=== PATIENT | male | born 1980 | race Caucasian/White ===

== ENCOUNTER → 2017-09-19 | Emergency (ER) | payer OTHER ==
[~2017-09-19] VITALS: Ht 182.9 cm; Wt 106.1 kg
[~2017-09-19] MED LIST: IV NS 0.9% 1,000 ML BAG IV ONE
--- NOTE | 2017-09-19 12:00 | NUR ---
WITNESSED SYNCOPE BY X 20 MINS INSPECTOR ADVANCED COMPOSITE. NO FALL, PT ASSISTED TO THE GROUND. PT STS HE HAD FEVER W/ BODY ACHES X3 DAYS. DR. KERN @ BS FOR EVAL. DENIES CP, SOB, DIZZINESS, N/V @ THIS TIME. PT PLACED ON MONITOR, NO ECTOPY NOTED. @ BS & WILL CONT TO MONITOR.
[2017-09-19 12:26] LABS: BASOPHILS % (AUTO) 0.2 % (0.0-2.0); EOSINOPHILS % (AUTO) 0.1 % (0.0-6.0); HEMATOCRIT 45 % (39-51); HEMOGLOBIN 14.9 g/dL (13.5-17.5); LYMPHOCYTES # (AUTO) 1.1 /CMM (0.8-4.8); LYMPHOCYTES % (AUTO) 8.8 % (20.0-44.0); MEAN CORPUSCULAR HEMOGLOBIN 27 PG (26.0-33.0); MEAN CORPUSCULAR HGB CONC 33 g/dl (31.0-36.0); MEAN CORPUSCULAR VOLUME 81 fL (80-96); MONOCYTES # (AUTO) 1.3 /CMM (0.1-1.30); MONOCYTES % (AUTO) 10.6 % (2.0-12.0); NEUTROPHILS # (AUTO) 10.3 /CMM (1.8-8.9); NEUTROPHILS % (AUTO) 80.3 % (43.0-81.0); PLATELET COUNT (AUTO) 232 /CMM (150-450); RDW COEFFICIENT OF VARIATION 12.2 (11.5-15.0); RED BLOOD CELL COUNT(AUTO) 5.57 MIL/uL (4.5-6.0); WHITE BLOOD COUNT (AUTO) 12.7 K/uL (4.3-11.0)
[2017-09-19 12:36] LABS: CALCIUM, SERUM 9.2 mg/dL (8.5-10.1); CARBON DIOXIDE 31 mmol/L (21-32); CHLORIDE 100 mmol/L (98-107); CREATININE 1.1 mg/dL (0.6-1.3); GLUCOSE 105 mg/dL (74-106); SODIUM SERUM 138 mmol/L (136-145); UREA NITROGEN, BLOOD 18 mg/dL (7-18)
[2017-09-19 12:42] LABS: ALANINE AMINOTRANSFERASE 28 U/L (12-78); ALBUMIN 3.9 g/dL (3.4-5.0); ALKALINE PHOSPHATASE 63 U/L (46-116); ASPARTATE AMINOTRANSFERASE 20 U/L (15-37); BILIRUBIN,DIRECT 0.1 mg/dL (0.0-0.2); BILIRUBIN,TOTAL 0.6 mg/dL (0.2-1.0); TOTAL PROTEIN, SERUM 8.5 g/dL (6.4-8.2)
[2017-09-19 12:44] LABS: TROPONIN I < 0.017 ng/mL (0.00-0.056)
[2017-09-19 13:30] VITALS: BP 120/40
--- NOTE | 2017-09-19 13:30 | NUR ---
Patient discharged to home in stable condition. Written and verbal after care instructions given. Patient verbalizes understanding of instruction.
== END ==
LOC: ER 11:53
DX: G89.29 Other chronic pain (principal); R55 Syncope and collapse; M54.9 Dorsalgia, unspecified
CPT/HCPCS: 36415; 71045; 80048; 80076; 84484; 85025; 86850; 93005 ×2; 96360; 99285; J7030; Z7610; A4606